=== PATIENT | male | born 1955 | race Hispanic/Latino ===

== ENCOUNTER 2022-11-13 04:04 | Emergency (ER) | payer MEDICARE ==
[~2022-11-13] VITALS: Ht 167.6 cm; Wt 92.7 kg
[2022-11-13 04:35] LABS: BASOPHILS # (AUTO) 0.06 K/uL (0.00-0.20); BASOPHILS % (AUTO) 0.9 % (0.0-5.0); EOSINOPHILS % (AUTO) 8.8 % (0.0-8.0); HEMATOCRIT 39.4 % (42-54); IMMATURE GRANULOCYTE ABSOLUTE 0.03 K/uL (0-1); LYMPHOCYTES # (AUTO) 3.4 K/uL (1.0-4.8); MEAN CORPUSCULAR HEMOGLOBIN 28.4 pg (27.0-33.0); MEAN CORPUSCULAR HGB CONC 33.2 g/dL (32.0-36.0); MEAN CORPUSCULAR VOLUME 85.5 fL (79-99); MONOCYTES # (AUTO) 0.6 K/uL (0.1-1.0); MONOCYTES % (AUTO) 8.3 % (3.0-13.0); NEUTROPHILS # (AUTO) 2.2 K/uL (1.8-7.7); NEUTROPHILS % (AUTO) 31.6 % (40.0-77.0); PLATELET COUNT (AUTO) 145 K/uL (130-400); RED BLOOD CELL COUNT(AUTO) 4.61 MIL/uL (4.50-6.20); RED CELL DISTRIBUTION WIDTH 14.2 % (11.0-15.5); WHITE BLOOD COUNT (AUTO) 6.8 K/uL (4.8-10.8)
[2022-11-13 04:37] LABS: APPEARANCE,URINE CLEAR (CLEAR); BILIRUBIN,URINE NEGATIVE (NEGATIVE); COLOR,URINE COLORLESS (YELLOW); GLUCOSE, URINE (UA) NEGATIVE (NEGATIVE); KETONES,URINE NEGATIVE (NEGATIVE); LEUKOCYTE ESTERASE ,URINE NEGATIVE Leu/uL (NEGATIVE); NITRATE,URINE NEGATIVE (NEGATIVE); OCCULT BLOOD,URINE NEGATIVE (NEGATIVE); PH,URINE 6.5 (5.0-8.0); PROTEIN,URINE 20 mg/dL (NEGATIVE); UROBILINOGEN,URINE 0.2 mg/dL (0.2-1.0)
[2022-11-13 04:38] LABS: ADD UA MICROSCOPIC NO
[2022-11-13 04:42] LABS: CREATININE 0.7 mg/dL (0.5-1.5); POTASSIUM 3.5 mmol/L (3.5-5.1)
[2022-11-13 04:56] LABS: ALBUMIN 3.9 g/dL (3.5-5.0); BILIRUBIN,TOTAL 0.3 mg/dL (0.2-1.0); TOTAL PROTEIN, SERUM 7.6 g/dL (6.0-8.3)
[2022-11-13] MEDS ORDERED: HYDROXYZINE 25 MG TABLET ONE (05:05)
[2022-11-13] MEDS ORDERED: FAMOTIDINE 20MG VIAL IV ONE ×2 (05:08→05:30)
[2022-11-13] MEDS ORDERED: SIMETHICONE 80 MG TAB.CHEW ONE (05:08)
[2022-11-13] MEDS ORDERED: HYDROXYZINE 25 MG TABLET PO ONE (05:30)
[2022-11-13] MEDS ORDERED: SIMETHICONE 80 MG TAB.CHEW PO SCH (05:30)
[2022-11-13 06:09] VITALS: BP 132/60; PULSE 78; RESP 16; O2SAT 95
[2022-11-13] MEDS ORDERED: FAMO-136 PO (06:43)
[2022-11-13] MEDS ORDERED: PHARMACY COMMUNICATION MISC SCH (09:00)
== END 2022-11-13 06:49 | disposition home or self-care (01) ==
LOC: EDH 04:04
DX: F41.9 Anxiety disorder, unspecified (principal); R03.0 Elevated blood-pressure reading, without diagnosis of hypertension; R10.13 Epigastric pain; I10 Essential (primary) hypertension; E78.00 Pure hypercholesterolemia, unspecified
CPT/HCPCS: 99285; 96374; 71045; 84484 ×2; 80053; 83690; 85025; 81003; 36415; 93005; J3490